=== PATIENT | male | born 1975 | race Caucasian/White ===

== ENCOUNTER 2020-08-02 21:45 | Emergency (ER) | payer OTHER ==
[~2020-08-02] VITALS: Ht 175.3 cm; Wt 104.3 kg
[2020-08-02 21:52] VITALS: BP 147/89
[2020-08-02] MEDS ORDERED: NEURONTIN 400M400 M2 PO (21:56)
[2020-08-02] MEDS ORDERED: PREDNISONE 20 M20 MG PO (22:11)
[2020-08-02] MEDS ORDERED: AMOXICILLIN875 MG PO (22:11)
[2020-08-02] MEDS ORDERED: NORCO 10-325 T1 EACH PO (22:11)
== END 2020-08-02 22:31 | disposition home or self-care (01) ==
LOC: ER 21:45
DX: G56.03 Carpal tunnel syndrome, bilateral upper limbs (principal); G89.29 Other chronic pain; Z79.899 Other long term (current) drug therapy